=== PATIENT | male | born 1960 | race Caucasian/White ===

== ENCOUNTER → 2019-08-30 | Outpatient (CLI) | payer OTHER ==
[2019-08-30 15:24] LABS: HEMATOCRIT 42.8 % (42.0-52.0); HEMOGLOBIN 14.4 gm/dL (14.0-18.0); MCH 31.5 pg (26.0-34.0); MCHC 33.6 g/dL (28.0-37.0); MCV 93.7 fL (80.0-100.0); RBC 4.57 mil/uL (4.50-6.00); RDW 12.9 % (10.5-14.5); WBC 7.5 thou/uL (4.0-11.0)
--- NOTE | 2019-08-31 07:51 | EKG ---
[place] [id number] [employer] [facility] [place] [place] [address] ELECTROCARDIOGRAM REPORT Name: LAURENMARKELL [id number]: 08/30/19 Attend Phys: Obdulio Griffin DPM Discharge: Date of : 62 Report #: [id number] THIS REPORT FOR: //name// [facility] Test Date: 2019-08-30 Test Time: 15:56:17 Pat Name: MARKELL AGUILAR Department: Room: Gender: Mid Level Game Designer: Jeovany MONTGOMERY : 1960 Requested By: Obdulio Griffin Order Number: [id number] MD: Navi Maldonado Measurements Intervals Tilly Rate: 54 P: 6 WV: 177 QRS: -15 QRSD: 99 T: -14 QT: 475 QTc: 451 Interpretive Statements Sinus bradycardia Left ventricular hypertrophy Borderline T abnormalities, inferior leads No previous ECG available for comparison Electronically Signed On 08-31-2019 7:51:02 [employer] by Navi Maldonado [email or web address] <ELECTRONICALLY SIGNED> By: Navi Maldonado MD, [facility] 08/31/19 0751 D: 11/1555 155 Navi Maldonado MD, FACC /EPI
== END ==
LOC: CV 13:25 → LABMALL 13:25
PROVIDERS: Podiatrist Foot & Ankle Surgery
DX: Z01.812 Encounter for preprocedural laboratory examination (principal); I51.7 Cardiomegaly; R00.1 Bradycardia, unspecified

== ENCOUNTER → 2020-03-17 | Outpatient (CLI) | payer OTHER ==
[2020-03-17 12:34] LABS: HEMOGLOBIN 14.1 gm/dL (14.0-18.0); MCH 32.7 pg (26.0-34.0); MCHC 34.4 g/dL (28.0-37.0); RBC 4.32 mil/uL (4.50-6.00); RDW 13.2 % (10.5-14.5); WBC 6.3 thou/uL (4.0-11.0)
[2020-03-17 12:36] LABS: CALCIUM 8.6 mg/dL (8.5-10.1); CREATININE 1.3 mg/dL (0.7-1.3); POTASSIUM 4.4 mmol/L (3.5-5.1)
== END ==
LOC: LAB 11:27
PROVIDERS: ATTEND Podiatrist Foot & Ankle Surgery
DX: Z01.812 Encounter for preprocedural laboratory examination (principal)